=== PATIENT | male | born 1950 | race Caucasian/White ===

== ENCOUNTER 2017-09-08 12:03 | Emergency (ER) | payer MEDICARE, OTHER ==
[~2017-09-08] VITALS: Ht 172.7 cm; Wt 102.0 kg
[~2017-09-08 12:03] MED LIST: ACET250T3 PO; ALPHAGAN EACHEYE; AMLO10TA80 PO; ASPIRIN; BIMA2.5D4 EACHEYE; BRIM10DR2 EACHEYE; CYAN10009 PO; DORZ10DR9 EACHEYE; Folic Acid PO; HYDROCHLOROTHIAZIDE; Lactulose PO; MEDS; Multivitamins,Ther W-Minerals PO; NEO/3.5O18 TOP; OLOP2.5D5 EACHEYE; TRAMADOL; Thiamine Hcl PO
[2017-09-08 15:44] VITALS: BP 152/73
== END 2017-09-08 16:14 | disposition home or self-care (01) ==
LOC: ER 13:32
DX: L98.0 Pyogenic granuloma (principal); R03.0 Elevated blood-pressure reading, without diagnosis of hypertension; H54.61 Unqualified visual loss, right eye, normal vision left eye; Z79.82 Long term (current) use of aspirin; Z79.899 Other long term (current) drug therapy
CPT/HCPCS: 99281